=== PATIENT | female | born 1965 | race Caucasian/White ===

== ENCOUNTER 2016-07-08 16:10 | Emergency (ER) | payer OTHER ==
[~2016-07-08 16:10] MED LIST: ACETAMINOPHEN325 MG PO; AMBIEN5 MG PO; ANTACI2 PO; ASPIRIN ADULT L81 M1 PO; ATORVASTATIN CA20 MG PO; BENZONATATE100 MG PO; DOCUSATE CALCI240 MG PO; ESTRACE1 MG PO; FLUTICASONE PR50 MCG; GLYBURIDE5 MG PO; IBUPROFEN200 M1 PO; IMITREX50 MG PO; IPRATROPIUM BROMIDE/ PO; JANUVIA100 MG PO; LAMICTAL100 MG PO; LIDODERM5 % TOP; LIPITOR80 MG PO; LORAZEPAM1 MG PO; LOTRIMIN AF1 % TOP; METFORMIN HCL500 MG PO; MIRTAZAPINE15 MG PO; NORCO1 TA2 PO; OXAYDO5 MG PO; PHENERGAN EQUIV25 MG PO; POTASSIUM CHLO10 ME2 PO; PRINIVIL20 MG PO; REMERON15 MG PO; ROBAXIN500 M1 PO; SYNTHROID50 MCG PO; TOPAMAX25 MG PO; TUMS500 MG PO; VENTOLIN HFA IN; VISTARIL25 MG PO; VITAMIN B 650 MG PO; WELLBUTRIN SR150 MG PO; ZANTAC 150 MAX150 MG PO; [UNRECOGNIZED DRUG - OTHER] TOP
--- NOTE | 2016-07-08 16:58 | DIAGNOSTIC IMAGING REPORT ---
PROCEDURE: XR CHEST 1 VIEW INDICATION: CHEST PAIN TECHNIQUE: Portable AP view 04:38 p.m. COMPARISON: Chest 08/06/2015 FINDINGS: Lungs are clear. Heart and mediastinum are normal. Thorax is normal. IMPRESSION: 1. Negative chest. Lungs clear
--- NOTE | 2016-07-08 17:58 | ED NURSING NOTES ---
Clinical Report - Nurses [facility] [address] [place] [address] 07/08/2016 16:11 Patient: SARA JOHNSTON [facility]#: [id number] TRIAGE Triage time 16:15 Jul 08 2016. Acuity: LEVEL 3. Chief Complaint: CHEST PAIN and DISCOMFORT. Alert. BETTY COMA SCORE: Betty Coma Scale: 15- eyes open spontaneously (4); best verbal response- oriented x 4 (5); best motor response- obeys commands (6). --16:24 Balwinder Doe R.N. 16:15 07/08/16. BP: 138/85. HR: 80 (regular). RR: 18. O2 saturation: 96%. Temp: 99.3 F (oral). --16:24 Balwinder Doe R.N. 16:15 07/08/16. Pain level now: 7/10. Additional comments: (L) Shoulder. --19:15 Balwinder Doe R.N. Weight: 89.4 kg measured. Height/Length: 65 inches Per Patient. BMI: 32.8. --16:18 Balwinder Doe R.N. Medications Antacid Oral. Aspirin Oral (Tablet 81 mg) 1 tablet, q day. Atorvastatin Calcium Oral 80 mg, daily. Benzonatate Oral 100 mg, 3x a day. Chlorhexidine Gluconate External. Clotrimazole External. Diphen/atropine. --16:24 Balwinder Doe R.N. Daly 250 mg 1-2 q day. Epinephrine Injection. Estradiol Oral (Tablet 1 mg) 1 tablet, q day. Fluticasone spray, PRN. --16:24 Balwinder Doe R.N. GlyBURIDE Oral 5 mg 2 tabs, 2x a day. Ibuprofen Oral, as needed. Ipratropium-Albuterol Inhalation. Januvia Oral 100mg daily. --16:24 Balwinder Doe R.N. LamoTRIgine Oral (Tablet 100 mg) 3 tablets am 2 tablets pm. Levothyroxine Sodium Oral 150 mcg, daily. Lidocaine patch. Lorazepam Oral 1 mg, 2x a day. Metformin HCl Oral 1000mg, 2x a day. Mirtazapine Oral 30 mg, at bedtime. OxyCODONE HCl Oral 5 mg 1-2 q 4-6 hrs. Potassium Oral 1 tablet, 2x a day. Proctozone cream. Promethazine HCl Oral 25 mg, 3x a day. Remeron Oral 30 mg, at bedtime. Robaxin Oral 750 mg 2 tabs, 3x a day. SUMAtriptan Succinate Oral. Topamax Oral 25 mg, 2x a day. Topiramate Oral 25 mg, 2x a day. --16:24 Balwinder Doe R.N. Tums Oral (UP TP 6 TIMES A DAY). Tylenol Oral. Ventolin HFA Inhalation, as needed. Vicodin Oral 7.5 mg, 2x a day. Vistaril Oral 25 mg, as needed. Vitamin B-6 Oral. Wellbutrin Oral 150 mg, 2x a day. Zantac Oral 150 mg, 2x a day. Zolpidem Tartrate Oral 10 mg, at bedtime. --16:24 Balwinder Doe R.N. Medication/allergy information source: the patient. --16:24 Balwinder Doe R.N. Allergies Alexandr Yates. Menthol. Methyl Salicylate. PCN. Pneumococcal Vaccines. --16:24 Balwinder Doe R.N. History Arrived by EMS. Historian: patient. Unaccompanied. Primary physician (Bowen). ( Chest Pain radiating down (L) arm. Pain with movement of that arm.). Onset. (Yesterday about 21 hours ago--took an Aspirin). 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 PAST MEDICAL HX: Immunizations: status is unknown. SOCIAL HX: Light tobacco smoker (cigarette)- less than 1/2 a pack per day. No infectious disease exposure. ABUSE ASSESSMENT: No report of abuse. FALL RISK ASSESSMENT: Fall risk assessment completed. No fall risk identified. NUTRITIONAL RISK ASSESSMENT: The nutritional risk assessment revealed no deficiencies. FUNCTIONAL ASSESSMENT: Functional assessment: no impairments noted. LEARNING NEEDS ASSESSMENT: The learning needs assessment revealed no barriers. SKIN INTEGRITY ASSESSMENT: Skin integrity risk assessment completed. No skin integrity risk identified. --16:24 Balwinder Doe R.N. PROBLEMS: Abnormal EKG. Chest Pain. Anal Fissure. Hemorrhoids. Constilpation. Gastroesophageal Reflux Disease. Borderline personality disorder. PTSD. Depression. Bipolar Disorder. Anxiety Reaction. Hypercholesterolemia. Hypertension. Hypothyroidism. Arthritis. Degenerative Joint Disease. TMJ Syndrome. Diabetes Mellitus Type 2. Migraine Headache. Fractured Phalanx (Toe). --16:23 Balwinder Doe R.N. ADDITIONAL SURGERIES: Adenoidectomy. Bladder Suspension. Bowel Surgery. Bunion. Cholecystectomy. Elbow. Hysterectomy. Knee Surgery. Laparoscopy. Oophorectomy. Salpingectomy. Tonsillectomy. --16:23 Balwinder Doe R.N. Interventions ID band on patient. To treatment room. --16:24 Balwinder Doe R.N. PHYSICAL ASSESSMENT Ambulatory to room. GENERAL / NEURO / PSYCH: Alert. Oriented X 4. HEENT: Mucous membranes are pink. RESPIRATORY: Respirations not labored. CVS: Normal sinus rhythm noted. EXTREMITIES: No lower extremity edema. SKIN: Skin is warm and dry. Normal skin turgor. --16:25 Balwinder Doe R.N. NURSING PROGRESS NOTES Patient gowned. Reassurance given. Patient identifiers checked. Call light placed in reach. Side rails up x 2. Bed placed in lowest position. Brakes of bed on. Patient ready for evaluation- chart flagged and ED physician notified. --16:25 Balwinder Doe R.N. 16:30. Patient ID band checked for patient name, birthdate and medical record number: patient confirmed. Instructions provided to collect clean catch urine and patient verbalized understanding. Clean catch urine collected with return of yellow-colored clear urine; odor is normal; sample sent to lab for urinalysis and culture. Specimen labeled in the presence of the patient. --16:43 Balwinder Doe R.N. 16:35. Patient ID band checked for patient name, birthdate and medical record number: patient confirmed. Blood samples drawn from the left antecubital space peripheral IV site by nurse per protocol ; labeled in presence of the patient: rainbow set. Initial blood discarded. Line flushed with 10 mL normal saline post blood draw. --16:43 Balwinder Doe R.N. 16:15 07/08/2016 Site #1 started prior to arrival by EMS via IV in the left antecubital space with an 18g angiocath, with aseptic technique and good blood return. Saline lock flushed with 10 mL saline (start by EMS in field). --16:45 Balwinder Doe R.N. EKG time: (1623). EKG was ordered, performed by a tech and shown to the ED physician. --17:21 Martha Rey ER Tech1 17:53 07/08/16. BP: 121/80. HR: 80. RR: 16. O2 saturation: 100% on room air. Pain level now: 5/10. Additional comments: (L) Shoulder Pain. --17:55 Balwinder Doe R.N. 18:00 07/08/16. BP: 127/87. HR: 82. RR: 16. Pain level now: 4/10. Additional comments: (L) Shoulder. --19:14 Balwinder Doe R.N. 18:18 07/08/2016 Site #1 removed upon discharge. Catheter intact. Manual pressure, bandaid and bandage applied. --19:17 Balwinder Doe R.N. DISPOSITION / DISCHARGE 18:20 07/08/16. BP: 142/90. HR: 15. RR: 16. O2 saturation: 99% on room air. Temp: 97.7 F (oral). Pain level now: 3/10. Additional comments: Sore (L) Shoulder. --19:09 Balwinder Doe R.N. Departure time: 1825. --19:09 Balwinder Doe R.N. 18:25. Condition at departure: improved. No learning barriers present. Discharge instructions provided and reviewed with the patient. Reviewed medication(s) course information (continue your usual medications). Reviewed referral to family practice for followup. Patient verbalized understanding. Written instructions provided in Cuban. The patient was discharged by the physician. She was discharged home and accompanied by signs and displays sales representative. She left the Emergency Department ambulatory and via private vehicle. Wind Turbine Technician driving. --19:12 Balwinder Doe R.N. Locked/Released at 07/08/2016 19:18 by Balwinder Doe R.N.
--- NOTE | 2016-07-08 17:58 | ED ORDER SUMMARY ---
..... Patient: SARA JOHNSTON OrderSheet [facility] VisitID: [id number] [place] [address] 51y, F Registration Date/Time: 07/08/2016 ORDER SHEET Weight: 89.4 kg (measured) Allergies: Alexandr Yates, Menthol, Methyl Salicylate, PCN, Pneumococcal Vaccines GENERAL ORDERS: Chest 1V Urgent (16:07/08/2016 Jagjit Hawkins) (16:44 JRomanelli R.N.) (Ack 16:44 KHoerner) Cardiac Panel Stat (16:07/08/2016 Jagjit Hawkins) (16:44 JRomanelli R.N.) (Ack 16:44 KHoerner) UA-Culture if indicated Urgent (16:07/08/2016 Jagjit Hawkins) (16:44 JRomanelli R.N.) (Ack 16:44 JOSELITOoerner) Urine Drug Screen Urgent (16:07/08/2016 Jagjit Hawkins) (16:44 JRomanelli R.N.) (Ack 16:44 KHoerner) D-Dimer Urgent (16:07/08/2016 Jagjit Hawkins) (16:44 JRomanelli R.N.) (Ack 16:44 KHoerner) EKG - ER Stat (16:07/08/2016 Jagjit Hawkins) (16:43 JRomanelli R.N.) (16:44 JOSELITOoerner) Social Media Content Manager (Continuous) (Chhest Pain) (16:46 07/08/2016 Xavierelli R.N. verbal order read back to Jagjit Hawkins) (16:46 Xavierelli R.N.) Oxygen (2 L/min) (NC) (16:46 07/08/2016 Alva R.N. verbal order read back to Jagjit Hawkins) (16:46 omanelli R.N.) Pulse oximeter (16:46 07/08/2016 Alva R.N. verbal order read back to Jagjit Hawkins) (16:46 Xavierelli R.N.) MEDICATION ORDERS: IV FLUIDS: IV Saline Lock (16:31 07/08/2016 Jagjit Hawkins) (16:45 Alva Davis) ORDER SHEET NOTES: [Electronically signed by Deondre Bach Dr. (18:01 07/08/2016)] [Electronically signed by Balwinder Doe R.N. (19:18 07/08/2016)] [Electronically locked/signed by Balwinder Doe R.N. (19:18 07/08/2016)]
--- NOTE | 2016-07-08 17:58 | ED ORDER SUMMARY ---
..... Patient: SARA JOHNSTON OrderSheet [facility] VisitID: [id number] [place] [address] 51y, F Registration Date/Time: 07/08/2016 ORDER SHEET Weight: 89.4 kg (measured) Allergies: Alexandr Yates, Menthol, Methyl Salicylate, PCN, Pneumococcal Vaccines GENERAL ORDERS: Chest 1V Urgent (16:07/08/2016 Jagjit Hawkins) (16:44 JRomanelli R.N.) (Ack 16:44 KHoerner) Cardiac Panel Stat (16:07/08/2016 Jagjit Hawkins) (16:44 JRomanelli R.N.) (Ack 16:44 KHoerner) UA-Culture if indicated Urgent (16:07/08/2016 Jagjit Hawkins) (16:44 JRomanelli R.N.) (Ack 16:44 JOSELITOoerner) Urine Drug Screen Urgent (16:07/08/2016 Jagjit Hawkins) (16:44 JRomanelli R.N.) (Ack 16:44 KHoerner) D-Dimer Urgent (16:07/08/2016 Jagjit Hawkins) (16:44 JRomanelli R.N.) (Ack 16:44 KHoerner) EKG - ER Stat (16:07/08/2016 Jagjit Hawkins) (16:43 JRomanelli R.N.) (16:44 JOSELITOoerner) Pharmacy Operations Coordinator (Continuous) (Chhest Pain) (16:46 07/08/2016 Xavierelli R.N. verbal order read back to Jagjit Hawkins) (16:46 Xavierelli R.N.) Oxygen (2 L/min) (NC) (16:46 07/08/2016 Alva R.N. verbal order read back to Jagjit Hawkins) (16:46 omanelli R.N.) Pulse oximeter (16:46 07/08/2016 Alva R.N. verbal order read back to Jagjit Hawkins) (16:46 Xavierelli R.N.) MEDICATION ORDERS: IV FLUIDS: IV Saline Lock (16:31 07/08/2016 Jagjit Hawkins) (16:45 Alva Davis) ORDER SHEET NOTES: [Electronically signed by Deondre Bach Dr. (18:01 07/08/2016)] [Electronically signed by Balwinder Doe R.N. (19:18 07/08/2016)] [Electronically locked/signed by Balwinder Doe R.N. (19:18 07/08/2016)]
--- NOTE | 2016-07-08 17:58 | ED CLINICAL REPORT ---
Clinical Report - Physicians/Mid Levels [facility] [address] [place] [address] 07/08/2016 16:11 Patient: SARA JOHNSTON Time Seen: 16:31; initial patient contact. Arrived- By ambulance. Historian- patient. HISTORY OF PRESENT ILLNESS Chief Complaint: CHEST PAIN. This started yesterday and is still present. It was gradual in onset and has been intermittent. Onset during rest. At its maximum, severity described as moderate. When seen in the E.D., severity described as mild. Modifying factors- relieved by rest. (Worse w/ ROM of LUE.). It is described as tightness and it is described as located in the left chest area and left shoulder and radiating to the left arm. No nausea, vomiting, difficulty breathing or diaphoresis. Similar symptoms previously: None. Recent medical care: Not recently seen/assessed. REVIEW OF SYSTEMS No fever, chills, pedal edema, calf pain or fainting episodes. No abdominal pain. All systems otherwise negative, except as recorded above. PAST HISTORY Abnormal EKG. Chest Pain. Anal Fissure. Hemorrhoids. Constilpation. Gastroesophageal Reflux Disease. Borderline personality disorder. PTSD. Depression. Bipolar Disorder. Anxiety Reaction. Hypercholesterolemia. Hypertension. Hypothyroidism. Arthritis. Degenerative Joint Disease. TMJ Syndrome. Diabetes Mellitus Type 2. Migraine Headache. Fractured Phalanx (Toe). NM stress test 16: 1. Normal myocardial perfusion. Normal LV systolic function. Result suggests a low risk profile for major coronary ischemic events. SURGERIES: Adenoidectomy. Bladder Suspension. Bowel Surgery. Bunion. Cholecystectomy. Elbow. Hysterectomy. Knee Surgery. Laparoscopy. Oophorectomy. Salpingectomy. Tonsillectomy. SOCIAL HISTORY Current every day smoker. No alcohol use or drug use. ADDITIONAL NOTES The nursing notes have been reviewed. PHYSICAL EXAM Vital Signs: 07/08/2016 16:15 BP: 138/85. HR: 80. RR: 18. O2 saturation: 96%. Temp: 99.3 F. Have been reviewed as normal. Appearance: Alert. Oriented X3. No acute distress. Eyes: Eyes normal inspection. ENT: Pharynx normal. Neck: Normal inspection. No JVD. CVS: Normal heart rate and rhythm. Heart sounds normal. Respiratory: No respiratory distress. Breath sounds normal. Chest nontender. Abdomen: Soft and nontender. Bowel sounds normal. Skin: Skin warm and dry. Normal skin color. No rash. Extremities: Left shoulder: moderate tenderness. Limited ROM due to pain (diminished abduction, flexion, extension and external and internal rotation). Neurovascular intact distally. Neuro: Oriented X 3. No motor deficit. LABS, X-RAYS, AND EKG EKG: EKG time: (1622). No acute process. Normal sinus rhythm. Rate: 77. Normal P waves. Normal CHRISTA. Normal QRS complex. Normal axis. Normal ST and T waves, QT and QTc. EKG unchanged when compared with prior EKG. (August 06, 2015). The study has been interpreted contemporaneously by me. The study has been independently viewed by me. The EKG appears to be a good tracing. I do not agree with or confirm the computer reading of the EKG. Interpretation time: 1623. Chest X-ray: No acute disease. Normal lung markings present. Normal heart size. No infiltrate. Views: AP. Technique: good. The X-rays were independently viewed by me and interpreted contemporaneously by me. Prior films were not available for comparison. Interpretation time: 17:51. Laboratory Tests: UA-Culture if indicated: (BOO: 07/08/2016 16:30) ( MsgRcvd 07/08/2016 16:48) Final results Test Result Flag Units (Reference) URINE COLOR YELLOW URINE APPEARANCE CLEAR URINE GLUCOSE 3+ (NEGATIVE) URINE BILIRUBIN NEGATIVE (NEGATIVE) URINE KETONE NEGATIVE (NEGATIVE) URINE SPECIFIC GRAVITY 1.010 (1.010-1.030) URINE PH 5.5 (5.0-8.0) URINE PROTEIN NEGATIVE (NEGATIVE) URINE UROBILINOGEN 0.2 EU/dL (0.2-1.0) URINE NITRITE NEGATIVE (NEGATIVE) URINE BLOOD NEGATIVE (NEGATIVE) URINE LEUK ESTERASE NEGATIVE (NEGATIVE) URINE RBC NONE SEEN rbc/hpf (0-1) URINE WBC 0-1 wbc/hpf (0-1) URINE EPITHELIAL CELLS 1-3 EPI/hpf (0-5) URINE BACTERIA NONE SEEN (NONE SEEN) URINE COMMENT CULT NOT INDICATED URINE CULTURES ARE SET-UP BASED ON THE FOLLOWING CRITERIA:POSITIVE NITRITEPOSITIVE LEUKOCYTE ESTERASEGREATER THAN 10 WHITE BLOOD CELLSMODERATE (2+) OR GREATER BACTERIA CBC w Diff: (BOO: 07/08/2016 16:35) ( [facility] 07/08/2016 16:49) Final results Test Result Flag Units (Reference) WHITE BLOOD COUNT 7.3 K/uL (4.5-11.5) RED BLOOD COUNT 4.78 M/uL (4.00-5.20) HEMOGLOBIN 11.1 L gm/dL (12.0-16.0) HEMATOCRIT 34.8 L % (36.0-46.0) MEAN CELL VOLUME 73 L fL (80-100) MEAN CORPUSCULAR HGB 23 L pg (26-34) MEAN CORPUSCULAR HGB CONC 32 g/dL (31-37) RED CELL DISTRIBUTION WIDTH 15.0 H % (11.6-14.8) PLATELET COUNT 278 K/uL (150-400) NEUTROPHIL % 75.6 H % (50-75) LYMPH % 18.7 L % (25-40) MONO % 5.5 % (3-14) EOSINOPHIL % 0 % (0-4) BASOPHIL % 0.2 % (0-2) [id number]: (BOO: 07/08/2016 16:35) ( [facility] 07/08/2016 16:59) Final results Test Result Flag Units (Reference) D-DIMER QUANTITATIVE 0.33 ug/mLFEU (0.27-0.52) The primary value of this quantitative assay relates toits negative predictive value (i.e. exclusion) of pulmonaryembolism/deep vein thrombosis/DIC.Elevated levels of d-dimer may also occur with:, age, cancer, inflammation, liver disease,post-op, infection, hematoma, coronary disease, peripheralarteriopathy, bleeding disorders and thrombolytic treatment.Results should be correlated with other clinical andradiological data.Testing Methodology: Latex Immunoassay Urine Drug Screen: (BOO: 07/08/2016 16:30) ( [facility] 07/08/2016 16:56) Final results Test Result Flag Units (Reference) AMPHETAMINE/METHAMPHETAMINE NEGATIVE (NEGATIVE) BARBITURATE NEGATIVE (NEGATIVE) BENZODIAZEPINE NEGATIVE (NEGATIVE) CANNABINOID NEGATIVE (NEGATIVE) COCAINE NEGATIVE (NEGATIVE) ECSTASY POSITIVE H (NEGATIVE) METHADONE NEGATIVE (NEGATIVE) OPIATE POSITIVE H (NEGATIVE) The urine drug screen is a qualitative screening test fordrug overdose and abuse. All screen results should beconsidered as presumptive.Drugs screened for are as follows:BenzodiazepinesCocaineAmphetamines/MetamphetaminesTHC (Tetrahydrocannabinol)OpiatesBarbituratesEcstasyMethadonePositive results are unconfirmed. For confirmation, notifythe lab for the specimen to be sent to the reference lab.All confirmations must be performed by a differentmethodology.The ingestion of natural herbal and plant productscontaining Ephedra/Ephedra metabolites can produce in urineone or more substances capable of cross reacting withamphetamine/methamphetamine immunoassays. These testsprovide a preliminary result only. A more specificalternative chemical method must be used to obtain aconfirmed analytical result. CHEM 13 PANEL: (BOO: 07/08/2016 16:35) ( MsgRcvd 07/08/2016 17:10) Final results Test Result Flag Units (Reference) GLUCOSE 195 H mg/dL (70-110) BUN 16 mg/dL (7-18) CREATININE 0.9 mg/dL (0.6-1.3) Estimated GFR >60 mL/min Estimated GFR- >60 mL/min Note: Persistent reduction over 3 months in eGFR<60 mL/min/1.73 m2 defines CKD. Patients with eGFR values>=60 mL/min/1.73 m2 may also have CKD if evidence ofpersistent proteinuria. Additional information may be foundat www.kidney.org. SODIUM 135 L mmol/L (136-145) POTASSIUM 3.9 mmol/L (3.5-5.1) CHLORIDE 102 mmol/L (98-107) CARBON DIOXIDE 20 L mmol/L (21-32) CALCIUM 9.3 mg/dL (8.5-10.1) TOTAL PROTEIN 7.7 g/dL (6.4-8.2) ALBUMIN 2.8 L g/dL (3.3-5.0) BILIRUBIN, TOTAL 0.3 mg/dL (0.0-1.0) ALKALINE PHOSPHATASE 69 U/L (46-116) AST (SGOT) 14 L U/L (15-37) ALT (SGPT) 22 U/L (12-78) CPK 80 U/L (24-260) MAGNESIUM 1.9 mg/dL (1.8-2.4) TROPONIN I <0.05 ng/mL (0.00-1.5) TROPONIN REFERENCE RANGE:<0.1 NEGATIVE0.1-1.5 INDETERMINANT>1.5 POSITIVE . PROGRESS AND PROCEDURES Disposition: Discharged home in good condition. Condition: good. CLINICAL IMPRESSION Muscle strain of the left deltoid and pectoralis major at the shoulder and chest wall. INSTRUCTIONS Apply ice for 20 minutes four times a day until better. Don't apply ice directly to skin. Limit use of left hand until well. Your Current Medications: CONTINUE TAKING THE FOLLOWING MEDICATIONS: Antacid Oral. Aspirin Oral : Tablet 81 mg, 1 tablet q day. Atorvastatin Calcium Oral : 80 mg daily. Benzonatate Oral : 100 mg 3x a day. Chlorhexidine Gluconate External. Clotrimazole External. Diphen/atropine*. Daly 250 mg 1-2 q day*. Epinephrine Injection. Estradiol Oral : Tablet 1 mg, 1 tablet q day. Fluticasone spray* : PRN. GlyBURIDE Oral : 5 mg 2 tabs 2x a day. Ibuprofen Oral : prn. Ipratropium-Albuterol Inhalation. Januvia Oral : 100mg daily. LamoTRIgine Oral : Tablet 100 mg, 3 tablets am 2 tablets pm. Levothyroxine Sodium Oral : 150 mcg daily. Lidocaine patch*. Lorazepam Oral : 1 mg 2x a day. Metformin HCl Oral : 1000mg 2x a day. Mirtazapine Oral : 30 mg at bedtime. OxyCODONE HCl Oral : 5 mg 1-2 q 4-6 hrs. Potassium Oral : 1 tablet 2x a day. Proctozone cream*. Promethazine HCl Oral : 25 mg 3x a day. Remeron Oral : 30 mg at bedtime. Robaxin Oral : 750 mg 2 tabs 3x a day. SUMAtriptan Succinate Oral. Topamax Oral : 25 mg 2x a day. Topiramate Oral : 25 mg 2x a day. Tums Oral : UP TP 6 TIMES A DAY. Tylenol Oral. Ventolin HFA Inhalation : prn. Vicodin Oral : 7.5 mg 2x a day. Vistaril Oral : 25 mg, prn. Vitamin B-6 Oral. Wellbutrin Oral : 150 mg 2x a day. Zantac Oral : 150 mg 2x a day. Zolpidem Tartrate Oral : 10 mg at bedtime. Follow-up: Follow up with your doctor in about two days. Call for an appointment. Blood pressure screening was not performed during this visit because the patient has an active diagnosis of hypertension. (Electronically signed by Deondre Bach Dr. 07/08/2016 18:01)
--- NOTE | 2016-07-08 19:18 | ED MAR SUMMARY ---
..... Medication Administration Record [facility] [address] [place] [address] Patient: SARA JOHNSTON Visit ID: [id number] 51y, F Weight: 89.4 kg Height/Length: 65 in BMI: 32.8 ALLERGIES: Alexandr Yates, Menthol, Methyl Salicylate, PCN, Pneumococcal Vaccines
--- NOTE | 2016-07-08 19:18 | ED MAR SUMMARY ---
..... Medication Administration Record [facility] [address] [place] [address] Patient: SARA JOHNSTON Visit ID: [id number] 51y, F Weight: 89.4 kg Height/Length: 65 in BMI: 32.8 ALLERGIES: Alexandr Yates, Menthol, Methyl Salicylate, PCN, Pneumococcal Vaccines
--- NOTE | 2016-07-08 19:18 | ED MED RECONCILIATION SUMMARY ---
Patient: SARA JOHNSTON Medication Reconciliation Report [facility] VisitID: [id number] [address] [place] [address] 51y, F Registration Date/Time: 07/08/2016 Weight: 89.4 kg Height/Length: 65 in. BMI: 32.8 ALLERGIES: Alexandr Yates, Menthol, Methyl Salicylate, PCN, Pneumococcal Vaccines The patient's Home Medications are listed below: CONTINUE TAKING THE FOLLOWING MEDICATIONS: Antacid Oral Aspirin Oral (81 mg) 1 tablet, q day Atorvastatin Calcium Oral 80 mg, daily Benzonatate Oral 100 mg, 3x a day Chlorhexidine Gluconate External Clotrimazole External Diphen/atropine Daly 250 mg 1-2 q day Epinephrine Injection Estradiol Oral (1 mg) 1 tablet, q day Fluticasone spray, PRN GlyBURIDE Oral 5 mg 2 tabs, 2x a day Ibuprofen Oral Ipratropium-Albuterol Inhalation Januvia Oral 100mg daily LamoTRIgine Oral (100 mg) 3 tablets am 2 tablets pm Levothyroxine Sodium Oral 150 mcg, daily Lidocaine patch Lorazepam Oral 1 mg, 2x a day Metformin HCl Oral 1000mg, 2x a day Mirtazapine Oral 30 mg, at bedtime OxyCODONE HCl Oral 5 mg 1-2 q 4-6 hrs Potassium Oral 1 tablet, 2x a day Proctozone cream Promethazine HCl Oral 25 mg, 3x a day Remeron Oral 30 mg, at bedtime Robaxin Oral 750 mg 2 tabs, 3x a day SUMAtriptan Succinate Oral Topamax Oral 25 mg, 2x a day Topiramate Oral 25 mg, 2x a day Tums Oral, UP TP 6 TIMES A DAY Tylenol Oral Ventolin HFA Inhalation Vicodin Oral 7.5 mg, 2x a day Vistaril Oral 25 mg Vitamin B-6 Oral Wellbutrin Oral 150 mg, 2x a day Zantac Oral 150 mg, 2x a day Zolpidem Tartrate Oral 10 mg, at bedtime The source(s) of the original Home Medication information: patient The following Medications were given to the patient in the Emergency Department: None. The following Medications were prescribed to the patient: None.
--- NOTE | 2016-07-08 19:18 | ED DISCHARGE INSTRUCTIONS ---
Patient: SARA JOHNSTON General Instructions [facility] VisitID: [id number] [place] [address] 51y, F Registration Date/Time: 07/08/2016 Muscle strain of the left deltoid and pectoralis major at the shoulder and chest wall. INSTRUCTIONS Apply ice for 20 minutes four times a day until better. Don't apply ice directly to skin. Limit use of left hand until well. Your Current Medications: CONTINUE TAKING THE FOLLOWING MEDICATIONS: Antacid Oral. Aspirin Oral : Tablet 81 mg, 1 tablet q day. Atorvastatin Calcium Oral : 80 mg daily. Benzonatate Oral : 100 mg 3x a day. Chlorhexidine Gluconate External. Clotrimazole External. Diphen/atropine*. Daly 250 mg 1-2 q day*. Epinephrine Injection. Estradiol Oral : Tablet 1 mg, 1 tablet q day. Fluticasone spray* : PRN. GlyBURIDE Oral : 5 mg 2 tabs 2x a day. Ibuprofen Oral : prn. Ipratropium-Albuterol Inhalation. Januvia Oral : 100mg daily. LamoTRIgine Oral : Tablet 100 mg, 3 tablets am 2 tablets pm. Levothyroxine Sodium Oral : 150 mcg daily. Lidocaine patch*. Lorazepam Oral : 1 mg 2x a day. Metformin HCl Oral : 1000mg 2x a day. Mirtazapine Oral : 30 mg at bedtime. OxyCODONE HCl Oral : 5 mg 1-2 q 4-6 hrs. Potassium Oral : 1 tablet 2x a day. Proctozone cream*. Promethazine HCl Oral : 25 mg 3x a day. Remeron Oral : 30 mg at bedtime. Robaxin Oral : 750 mg 2 tabs 3x a day. SUMAtriptan Succinate Oral. Topamax Oral : 25 mg 2x a day. Topiramate Oral : 25 mg 2x a day. Tums Oral : UP TP 6 TIMES A DAY. Tylenol Oral. Ventolin HFA Inhalation : prn. Vicodin Oral : 7.5 mg 2x a day. Vistaril Oral : 25 mg, prn. Vitamin B-6 Oral. Wellbutrin Oral : 150 mg 2x a day. Zantac Oral : 150 mg 2x a day. Zolpidem Tartrate Oral : 10 mg at bedtime. Follow-up: Follow up with your doctor in about two days. Call for an appointment. Blood pressure screening was not performed during this visit because the patient has an active diagnosis of hypertension. ADDITIONAL INFORMATION Muscle Strain,Extremity A MUSCLE STRAIN is a stretching and tearing of muscle fibers. This causes pain, especially with motion of that muscle. There may also be some swelling and bruising. Home Care: 1) Keep the injured area raised to reduce pain and swelling. This is especially important during the first 48 hours. 2) Make an ice pack (ice cubes in a plastic bag, wrapped in a towel) and apply for 20 minutes every 1-2 hours the first day. You should continue with ice packs 3-4 times a day for the second and third days. Unless otherwise instructed, on the fourth day you may begin hot soaks or hot packs (small towel soaked in hot water) 3-4 times a day while you gently exercise the involved area. 3) You may use acetaminophen (Tylenol) or ibuprofen (Motrin, Advil) to control pain, unless another medicine was prescribed. [ NOTE : If you have chronic liver or kidney disease or ever had a stomach ulcer or GI bleeding, talk with your doctor before using these medicines.] 4) For LEG STRAINS: If CRUTCHES have been recommended, do not bear full weight on the injured leg until you can do so without pain. You may return to sports when you are able to hop and run on the injured leg without pain. Follow Up with your doctor or this facility if you are not improving within the next five days. Get Prompt Medical Attention if any of the following occur: -- Fingers or toes become swollen, cold, blue, numb or tingly -- Pain or swelling increases You have been given the following additional information: Muscle Strain, Extremity Limit use of left hand until well. (Electronically signed by Deondre Bach Dr. 07/08/2016 18:01)
--- NOTE | 2016-07-08 19:18 | ED MED RECONCILIATION SUMMARY ---
Patient: SARA JOHNSTON Medication Reconciliation Report [facility] VisitID: [id number] [address] [place] [address] 51y, F Registration Date/Time: 07/08/2016 Weight: 89.4 kg Height/Length: 65 in. BMI: 32.8 ALLERGIES: Alexandr Yates, Menthol, Methyl Salicylate, PCN, Pneumococcal Vaccines The patient's Home Medications are listed below: CONTINUE TAKING THE FOLLOWING MEDICATIONS: Antacid Oral Aspirin Oral (81 mg) 1 tablet, q day Atorvastatin Calcium Oral 80 mg, daily Benzonatate Oral 100 mg, 3x a day Chlorhexidine Gluconate External Clotrimazole External Diphen/atropine Daly 250 mg 1-2 q day Epinephrine Injection Estradiol Oral (1 mg) 1 tablet, q day Fluticasone spray, PRN GlyBURIDE Oral 5 mg 2 tabs, 2x a day Ibuprofen Oral Ipratropium-Albuterol Inhalation Januvia Oral 100mg daily LamoTRIgine Oral (100 mg) 3 tablets am 2 tablets pm Levothyroxine Sodium Oral 150 mcg, daily Lidocaine patch Lorazepam Oral 1 mg, 2x a day Metformin HCl Oral 1000mg, 2x a day Mirtazapine Oral 30 mg, at bedtime OxyCODONE HCl Oral 5 mg 1-2 q 4-6 hrs Potassium Oral 1 tablet, 2x a day Proctozone cream Promethazine HCl Oral 25 mg, 3x a day Remeron Oral 30 mg, at bedtime Robaxin Oral 750 mg 2 tabs, 3x a day SUMAtriptan Succinate Oral Topamax Oral 25 mg, 2x a day Topiramate Oral 25 mg, 2x a day Tums Oral, UP TP 6 TIMES A DAY Tylenol Oral Ventolin HFA Inhalation Vicodin Oral 7.5 mg, 2x a day Vistaril Oral 25 mg Vitamin B-6 Oral Wellbutrin Oral 150 mg, 2x a day Zantac Oral 150 mg, 2x a day Zolpidem Tartrate Oral 10 mg, at bedtime The source(s) of the original Home Medication information: patient The following Medications were given to the patient in the Emergency Department: None. The following Medications were prescribed to the patient: None.
== END 2016-07-08 18:25 | disposition home or self-care (01) ==
LOC: ED SRH 16:10
DX: S29.011A Strain of muscle and tendon of front wall of thorax, initial encounter (principal); S46.812A Strain of other muscles, fascia and tendons at shoulder and upper arm level, left arm, initial encounter; X58.XXXA Exposure to other specified factors, initial encounter; Y99.9 Unspecified external cause status; Y93.9 Activity, unspecified; Y92.9 Unspecified place or not applicable; F17.210 Nicotine dependence, cigarettes, uncomplicated; I10 Essential (primary) hypertension; E78.00 Pure hypercholesterolemia, unspecified; E07.9 Disorder of thyroid, unspecified
CPT/HCPCS: 90004; 90100; 90616; 91556; 92610; 92720; 92760; 92761; 92762; 92763; 92764; 92765; 92766; 92767; 95059